=== PATIENT | male | born 1970 | race Caucasian/White ===

== ENCOUNTER → 2019-12-26 | Outpatient (CLI) | payer SELFPAY ==
[~2019-12-26] MED LIST: LORA0.5T34 PO; OLN10T PO
--- NOTE | 2019-12-26 16:33 | Diagnostic Imaging Report ---
EXAMINATION: Chest 2 view HISTORY: Fall. Shortness of breath. Pain in the left lower ribs. COMPARISON: None available. FINDINGS: The lung volumes are normal. Patchy opacities are visualized in the left lung base. No large pleural effusion or pneumothorax is seen. The cardiomediastinal silhouette is normal in size and contour. No acute osseous abnormality is seen. No acute displaced rib fractures are identified. IMPRESSION: 1. Patchy opacities in the left lung base, which may represent inflammatory or infectious etiology. In the setting of trauma, contusion may also be possible. No evidence of pleural effusion or pneumothorax. 2. No acute displaced left-sided rib fractures. Dictated by: Dictated on workstation # [id number]
== END ==
LOC: RAD 15:34
PROVIDERS: ATTEND Registered Nurse
DX: J98.4 Other disorders of lung (principal); W01.0XXA Fall on same level from slipping, tripping and stumbling without subsequent striking against object, initial encounter
CPT/HCPCS: 71046

== ENCOUNTER 2021-11-28 21:10 | Emergency (ER) | payer SELFPAY ==
[~2021-11-28] VITALS: Ht 180 cm; Wt 81.6 kg
[2021-11-28] MEDS ORDERED: TETANUS,DIPTH,PERTUSS P/F (BOOSTRIX) 0.5 ML VIAL IM ONE (21:15)
[2021-11-28] MEDS ORDERED: LACTATED RINGERS 1,000 ML IV ONE (21:15)
[2021-11-28 21:32] LABS: BASOPHILS % (AUTO) 1 % (0-10); EOSINOPHILS # (AUTO) 0.1 10^3/uL (0.0-0.3); EOSINOPHILS % (AUTO) 1 % (0-10); HEMATOCRIT 41 % (40-54); HEMOGLOBIN 13.7 g/dL (13.3-17.7); LYMPHOCYTES # (AUTO) 1.4 10^3/uL (1.0-4.0); LYMPHOCYTES % (AUTO) 25 % (12-44); MEAN CORPUSCULAR HEMOGLOBIN 31 pg (25-34); MEAN CORPUSCULAR HGB CONC 34 g/dL (32-36); MEAN CORPUSCULAR VOLUME 91 fL (80-99); MEAN PLATELET VOLUME 9.9 fL (9.0-12.2); MONOCYTES # (AUTO) 0.7 10^3/uL (0.0-1.0); MONOCYTES % (AUTO) 13 % (0-12); NEUTROPHILS # (AUTO) 3.4 10^3/uL (1.8-7.8); NEUTROPHILS % (AUTO) 60 % (42-75); PLATELET COUNT 234 10^3/uL (130-400); WHITE BLOOD COUNT 5.7 10^3/uL (4.3-11.0)
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
[2021-11-28] MEDS ORDERED: IOHEXOL 350 MG/ML 100 ML (OMNIPAQUE 350) VIAL IV ONE (21:45)
[2021-11-28] MEDS ORDERED: NS 100 ML (IVPB) BAG IV ONE (21:45)
[2021-11-28] MEDS ORDERED: HOLD METFORMIN - RECEIVED CONTRAST 20 ML VIAL IV SCH (21:45)
[2021-11-28 21:58] LABS: ALANINE AMINOTRANSFERASE 27 U/L (0-55); ALKALINE PHOSPHATASE 67 U/L (40-136); AMYLASE 99 U/L (25-125); BILIRUBIN,TOTAL 0.5 MG/DL (0.1-1.0); BUN/CREATININE RATIO 7; CALCIUM 8.9 MG/DL (8.5-10.1); CARBON DIOXIDE 20 MMOL/L (21-32); CHLORIDE 104 MMOL/L (98-107); CREATINE KINASE 263 U/L (30-200); GFR ESTIMATED 81; GLUCOSE 106 MG/DL (70-105); LIPASE 21 U/L (8-78); MAGNESIUM 1.7 MG/DL (1.6-2.4); POTASSIUM 3.4 MMOL/L (3.6-5.0); SODIUM 138 MMOL/L (135-145); TOTAL PROTEIN 7.1 GM/DL (6.4-8.2)
[2021-11-28 22:03] LABS: ACETAMINOPHEN < 10 UG/ML (10-30)
[2021-11-28 22:06] LABS: CREATINE KINASE MB 5.4 NG/ML (<6.6)
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
--- NOTE | 2021-11-28 22:35 | Diagnostic Imaging Report ---
INDICATION: Trauma. EXAMINATION: Chest, 11/28/2021. FINDINGS: The heart is unremarkable. Pulmonary vasculature is normal. Lungs and pleural spaces clear. No infiltrate, effusion or pneumothorax. IMPRESSION: No acute cardiopulmonary process. Dictated by: Dictated on workstation # [id number]
[2021-11-28 22:36] LABS: BILIRUBIN,URINE NEGATIVE (NEGATIVE); CLARITY,URINE CLEAR; COLOR,URINE OTHER; GLUCOSE, URINE (UA) NEGATIVE (NEGATIVE); KETONES,URINE NEGATIVE (NEGATIVE); LEUKOCYTE ESTERASE ,URINE NEGATIVE (NEGATIVE); NITRITE,URINE NEGATIVE (NEGATIVE); PROTEIN,URINE NEGATIVE (NEGATIVE)
[2021-11-28] MEDS ORDERED: ceFAZolin INJECTION 1,000 MG VIAL IV ONE (22:45)
[2021-11-28] MEDS ORDERED: fentaNYL INJ 100 MCG/2 ML AMP IVP ONE (22:45)
[2021-11-28 22:52] LABS: BACTERIA,URINE TRACE /HPF; WBC,URINE RARE /HPF
[2021-11-28 23:05] LABS: AMPHETAMINE SCREEN, URINE NEGATIVE (NEGATIVE); BARBITURATE SCREEN URINE NEGATIVE (NEGATIVE); BENZODIAZEPINES SCREEN URINE NEGATIVE (NEGATIVE); CANNABINOID SCREEN, URINE NEGATIVE (NEGATIVE); COCAINE SCREEN URINE NEGATIVE (NEGATIVE); METHADONE STAT NEGATIVE (NEGATIVE); OPIATE SCREEN URINE NEGATIVE (NEGATIVE); OXYCODONE STAT NEGATIVE (NEGATIVE); PROPOXYPHENE STAT NEGATIVE (NEGATIVE); TRICYCLIC ANTIDEPRESSANTS SCRE NEGATIVE (NEGATIVE)
--- NOTE | 2021-11-28 23:07 | Diagnostic Imaging Report ---
INDICATION: Trauma, pain. EXAMINATION: CT chest, abdomen and pelvis with contrast, 11/28/2021. FINDINGS: CT CHEST: There are chronic changes within the lungs with no pneumothorax appreciated. There is bibasilar dependent atelectasis. Scattered mildly prominent lymph nodes noted within the mediastinum. No pericardial or pleural effusions noted. Small hiatal hernia seen. There is deformity of the anterior left 12th rib likely chronic correlate for any point tenderness. Remaining osseous structures unremarkable. IMPRESSION: 1. Deformity of the anterior left 12th rib and likely chronic but correlate for point tenderness. 2. Bibasilar dependent atelectasis with otherwise no acute process in the chest. CT ABDOMEN/PELVIS: Liver appears intact. The spleen intact. Kidneys unremarkable. Gallbladder normal. Pancreas unremarkable. Adrenal glands within normal limits. Fat stranding along the left aspect of the anterior abdomen subcutaneously likely due to contusion. Appendix normal. There is diverticular disease without evidence for acute diverticulitis. There is no ascites. No free air. There is postoperative change in the visualized right femur. No acute osseous abnormality. IMPRESSION: Fat stranding along the left aspect of the anterior abdomen subcutaneously likely due to contusion Dictated by: Dictated on workstation # [id number]
[2021-11-28 23:28] VITALS: BP 157/106
== END 2021-11-28 23:29 | disposition short-term general hospital (02) ==
LOC: EDUNIT# 21:10 → ER 21:12
DX: S02.101A Fracture of base of skull, right side, initial encounter for closed fracture (principal); S02.2XXA Fracture of nasal bones, initial encounter for closed fracture; S02.601A Fracture of unspecified part of body of right mandible, initial encounter for closed fracture; S02.85XA Fracture of orbit, unspecified, initial encounter for closed fracture; S52.572A Other intraarticular fracture of lower end of left radius, initial encounter for closed fracture; S52.612A Displaced fracture of left ulna styloid process, initial encounter for closed fracture; S20.212A Contusion of left front wall of thorax, initial encounter; S30.1XXA Contusion of abdominal wall, initial encounter; S01.311A Laceration without foreign body of right ear, initial encounter; F10.229 Alcohol dependence with intoxication, unspecified; F17.210 Nicotine dependence, cigarettes, uncomplicated; Z23 Encounter for immunization; Z28.310 Unvaccinated for COVID-19; Y90.6 Blood alcohol level of 120-199 mg/100 ml; V86.56XA Driver of dirt bike or motor/cross bike injured in nontraffic accident, initial encounter
CPT/HCPCS: 70450; 70486; 71045; 71260; 72125; 72128; 72131; 72170; 73130; 74177; 80053; 80306; 81000; 82150; 82550; 82553; 83690; 83735; 83874; 84484; 85025; 85610; 85730; 93005; 93041; 99291; 99292; G0390; G0480 ×2; 36415; 80320; 80329; 90715